=== PATIENT | female | born 1940 | race Two or more races ===

== ENCOUNTER 2021-04-15 12:23 | Emergency (ER) | payer OTHER ==
[2021-04-15 12:31] VITALS: PULSE 87; BMI 23.3
[2021-04-15] MEDS ORDERED: SODIUM CHLORIDE 0.9% 500 ML INFUS.BAG IV ONE (13:32)
[2021-04-15] MEDS ORDERED: ONDANSETRON 4 MG TABLET PO ONE (13:39)
[2021-04-15] MEDS ORDERED: ONDANSETRON 4 MG/2 ML VIAL ONE (13:46)
[2021-04-15 14:51] LABS: BASO % 0.8 % (0-2.0); EOS % 0.9 % (0-4.5); HEMATOCRIT 36.8 % (32.4-45.2); HEMOGLOBIN 12.4 GM/dL (10.7-15.3); LYMPH % 24.7 % (8-40); MCH 31.4 pg (25.7-33.7); MCHC 33.7 g/dl (32.0-36.0); MEAN CELL VOLUME 93.1 fl (80-96); MEAN PLT VOLUME 7.8 fl (7.5-11.1); MONO % 6.5 % (3.8-10.2); NEUT % 67.1 % (42.8-82.8); PLATELET COUNT 231 10^3/uL (134-434); RBC 3.95 M/mm3 (3.60-5.2); RDW 13.1 % (11.6-15.6); WHITE BLOOD COUNT 4.4 K/mm3 (4.0-10.0)
[2021-04-15 14:55] LABS: CALCIUM 9.2 mg/dL (8.5-10.1)
[2021-04-15 14:56] LABS: ALBUMIN 3.9 g/dl (3.4-5.0)
[2021-04-15 14:58] LABS: CREATININE 0.7 mg/dL (0.55-1.3)
[2021-04-15 15:00] LABS: BILIRUBIN,TOTAL 0.4 mg/dL (0.2-1)
[2021-04-15 15:15] LABS: EPI CELLS 19 /uL (0-25.1); HYALINE CASTS 0 /uL (0-3.1); URINE APPEARANCE CLEAR; URINE BACTERIA >9,000 /uL (0-1359); URINE BILIRUBIN NEGATIVE (NEGATIVE); URINE COLOR YELLOW; URINE GLUCOSE (UA) NEGATIVE (NEGATIVE); URINE KETONE NEGATIVE (NEGATIVE); URINE LEUK ESTERASE 1+ (NEGATIVE); URINE NITRITE NEGATIVE (NEGATIVE); URINE PROTEIN NEGATIVE (NEGATIVE); URINE RBC 2 /uL (0-23.9); URINE UROBILINOGEN 0.2 mg/dL (0.2-1.0); URINE WBC 34 /uL (0-25.8)
[2021-04-15 17:23] VITALS: BP 148/74; TEMP 98.1
== END 2021-04-15 17:24 | disposition home or self-care (01) ==
LOC: JER 12:23
DX: N39.0 Urinary tract infection, site not specified (principal)
CPT/HCPCS: 36415; 71045-TC-FY; 80053; 81003; 82550; 83605; 83690; 84484; 85025; 87086; 87186; 93005; 93010; 99284-25

== ENCOUNTER 2021-08-13 20:10 | Emergency (ER) | payer OTHER ==
[2021-08-13 20:17] VITALS: BMI 25.0
[2021-08-13 21:44] LABS: EOS % 0.5 % (0-4.5); HEMATOCRIT 38.2 % (32.4-45.2); HEMOGLOBIN 13.1 GM/dL (10.7-15.3); MCH 31.7 pg (25.7-33.7); MCHC 34.2 g/dl (32.0-36.0); MEAN CELL VOLUME 92.6 fl (80-96); MEAN PLT VOLUME 7.8 fl (7.5-11.1); MONO % 3.8 % (3.8-10.2); NEUT % 78.7 % (42.8-82.8); PLATELET COUNT 233 10^3/uL (134-434); RBC 4.12 M/mm3 (3.60-5.2); RDW 13.5 % (11.6-15.6); WHITE BLOOD COUNT 7.1 K/mm3 (4.0-10.0)
[2021-08-13 22:08] LABS: CHLORIDE 100 mmol/L (98-107); SODIUM 137 mmol/L (136-145)
[2021-08-13 22:10] LABS: CALCIUM 8.8 mg/dL (8.5-10.1)
[2021-08-13 22:11] LABS: ALBUMIN 4.1 g/dl (3.4-5.0); ANION GAP 4 MMOL/L (8-16); BLOOD UREA NITROGEN 9.1 mg/dL (7-18); CO2 33 mmol/L (21-32); GLUCOSE,RANDOM 152 mg/dL (74-106)
[2021-08-13 22:14] LABS: CREATININE 0.7 mg/dL (0.55-1.3); SGOT/AST 23 U/L (15-37); SGPT/ALT 34 U/L (13-61)
[2021-08-13 22:15] LABS: BILIRUBIN,TOTAL 0.4 mg/dL (0.2-1); TOT PROT 7.8 g/dl (6.4-8.2)
[2021-08-13 22:17] LABS: ALK PHOS 103 U/L (45-117)
[2021-08-13 22:19] LABS: EPI CELLS 1 /uL (0-25.1); HYALINE CASTS 0 /uL (0-3.1); URINE APPEARANCE CLEAR; URINE BACTERIA 25 /uL (0-1359); URINE BILIRUBIN NEGATIVE (NEGATIVE); URINE COLOR YELLOW; URINE GLUCOSE (UA) NEGATIVE (NEGATIVE); URINE KETONE NEGATIVE (NEGATIVE); URINE LEUK ESTERASE NEGATIVE (NEGATIVE); URINE NITRITE NEGATIVE (NEGATIVE); URINE PROTEIN NEGATIVE (NEGATIVE); URINE RBC 7 /uL (0-23.9); URINE UROBILINOGEN 0.2 mg/dL (0.2-1.0); URINE WBC 2 /uL (0-25.8)
[2021-08-13 23:45] VITALS: BP 178/96; PULSE 86; TEMP 97.9
== END 2021-08-13 23:46 | disposition home or self-care (01) ==
LOC: JER 20:10
DX: R42 Dizziness and giddiness (principal); I10 Essential (primary) hypertension
CPT/HCPCS: 36415; 70450-TC; 80053; 81003; 82550; 84484; 85025; 87086; 93005; 93010; 99285-25

== ENCOUNTER 2021-09-17 13:46 | Emergency (ER) | payer OTHER ==
[2021-09-17 14:01] VITALS: BP 134/72; PULSE 65; TEMP 98.1; BMI 20.9
[2021-09-17 15:52] LABS: EPI CELLS >36 /uL (0-25.1); HYALINE CASTS 7 /uL (0-3.1); PH,URINE 5.5 (5.0-8.0); URINE APPEARANCE CLEAR; URINE BACTERIA 1889 /uL (0-1359); URINE BILIRUBIN NEGATIVE (NEGATIVE); URINE COLOR YELLOW; URINE GLUCOSE (UA) NEGATIVE (NEGATIVE); URINE KETONE TRACE (NEGATIVE); URINE LEUK ESTERASE 1+ (NEGATIVE); URINE NITRITE NEGATIVE (NEGATIVE); URINE PROTEIN TRACE (NEGATIVE); URINE RBC 36 /uL (0-23.9); URINE WBC 98 /uL (0-25.8)
[2021-09-17 17:16] LABS: CHLORIDE 102 mmol/L (98-107); SODIUM 140 mmol/L (136-145)
[2021-09-17 17:18] LABS: CALCIUM 8.9 mg/dL (8.5-10.1)
[2021-09-17 17:19] LABS: ALBUMIN 3.5 g/dl (3.4-5.0); ANION GAP 5 MMOL/L (8-16); BLOOD UREA NITROGEN 15.5 mg/dL (7-18); CO2 33 mmol/L (21-32); GLUCOSE,RANDOM 161 mg/dL (74-106); MAGNESIUM 2.6 mg/dL (1.8-2.4)
[2021-09-17 17:21] LABS: BASO % 0.1 % (0-2.0); EOS % 0.3 % (0-4.5); HEMOGLOBIN 12.3 GM/dL (10.7-15.3); LYMPH % 8.2 % (8-40); MCH 31.8 pg (25.7-33.7); MCHC 34.2 g/dl (32.0-36.0); MEAN CELL VOLUME 92.9 fl (80-96); MEAN PLT VOLUME 7.9 fl (7.5-11.1); MONO % 3.1 % (3.8-10.2); NEUT % 88.3 % (42.8-82.8); PLATELET COUNT 230 10^3/uL (134-434); RBC 3.87 M/mm3 (3.60-5.2); RDW 13.3 % (11.6-15.6); WHITE BLOOD COUNT 8.3 K/mm3 (4.0-10.0)
[2021-09-17 17:22] LABS: CREATININE 0.7 mg/dL (0.55-1.3); SGOT/AST 80 U/L (15-37); SGPT/ALT 112 U/L (13-61)
[2021-09-17 17:23] LABS: BILIRUBIN,TOTAL 0.3 mg/dL (0.2-1); TOT PROT 7.1 g/dl (6.4-8.2)
[2021-09-17 17:25] LABS: ALK PHOS 129 U/L (45-117)
== END 2021-09-17 18:15 | disposition home or self-care (01) ==
LOC: JER 13:46
DX: R53.1 Weakness (principal); N39.0 Urinary tract infection, site not specified; J34.89 Other specified disorders of nose and nasal sinuses
CPT/HCPCS: 36415; 71045-TC-FY; 80053; 81003; 82550; 83735; 84484; 85025; 87086; 87804; 87807; 93005; 93010; 99285-25; C9803; U0003; U0005